=== PATIENT | male | born 1945 | race Caucasian/White ===

== ENCOUNTER 2023-08-10 14:44 | Emergency (ER) | payer OTHER, MEDICARE ==
[2023-08-10 15:14] VITALS: BP 142/101; PULSE 85; RESP 20; TEMP 98.2; BMI 30.4
[2023-08-10 15:56] LABS: HEMATOCRIT 46.4 % (35.4-49); HEMOGLOBIN 15.3 G/dL (11.7-16.9); MCH 31.5 pg (25.7-33.7); MEAN CELL VOLUME 95.5 fl (80-96); MEAN PLT VOLUME 9.4 fl (7.5-11.1); PLATELET COUNT 251.5 10^3/uL (134-434); RBC 4.86 10^6/uL (4.00-5.60); RDW 13.3 % (11.9-15.9); WHITE BLOOD COUNT 6.1 10^3/uL (4.0-10.8)
[2023-08-10 16:44] LABS: PLATELET ESTIMATE ADEQUATE
[2023-08-10 17:07] LABS: ALBUMIN 4.4 g/dl (3.4-5.0); BILIRUBIN,TOTAL 1.4 mg/dl (0.2-1); CALCIUM 10.1 mg/dl (8.5-10.1); CREATININE 0.8 mg/dl (0.6-1.3); POTASSIUM 4.2 mmol/L (3.5-5.1); TOT PROT 7.1 g/dl (6.4-8.2)
== END 2023-08-10 18:05 | disposition home or self-care (01) ==
LOC: FER 14:44
DX: R10.32 Left lower quadrant pain (principal); R14.0 Abdominal distension (gaseous); R11.0 Nausea; R42 Dizziness and giddiness
CPT/HCPCS: 36415; 74177-TC; 80053; 83605; 85027; 99285-25; Q9967

== ENCOUNTER 2024-07-05 07:34 | Day surgery (SDC) | payer OTHER, MEDICARE ==
[2024-07-03 16:04] VITALS: BMI 31.4
[2024-07-05 11:28] VITALS: TEMP 98
[2024-07-05 11:30] VITALS: BP 121/64; PULSE 82; RESP 19
== END 2024-07-05 09:15 | disposition home or self-care (01) ==
LOC: FASU-ENDO 07:34
PROVIDERS: ATTEND Internal Medicine Gastroenterology
PROC: 0DBK8ZX Excision of Ascending Colon, Via Natural or Artificial Opening Endoscopic, Diagnostic (ICD-10-PCS; principal; 2024-07-05 08:27)
DX: Z12.11 Encounter for screening for malignant neoplasm of colon (principal); D12.2 Benign neoplasm of ascending colon; K57.30 Diverticulosis of large intestine without perforation or abscess without bleeding
CPT/HCPCS: 88305-TC

== ENCOUNTER 2024-07-14 13:05 | Emergency (ER) | payer OTHER, MEDICARE ==
[2024-07-14 13:11] VITALS: RESP 16; BMI 30.7
[2024-07-14] MEDS ORDERED: ONDANSETRON 4 MG/2 ML VIAL ONE (13:36)
[2024-07-14] MEDS: ONDANSETRON 4 MG/2 ML VIAL IVPB ONE (14:00)
[2024-07-14] MEDS: SODIUM CHLORIDE 0.9% 500 ML INFUS.BAG IV ONE (14:00)
[2024-07-14 14:15] LABS: ABSOLUTE IMMATURE GRANULOCYTES 0.01 x10^3/uL (0.0-0.031); BASOPHILS # 0.04 x10^3/uL (0.01-0.08); EOSINOPHIL % 0.8 % (0.8-7.0); EOSINOPHILS # 0.05 x10^3/uL (0.04-0.54); HEMATOCRIT 46.2 % (40.1-51.0); HEMOGLOBIN 15.9 g/dL (13.7-17.5); MCHC 34.4 g/dl (32.3-36.5); MEAN CELL VOLUME 93.3 fl (79.0-92.2); MEAN PLT VOLUME 10.9 fl (9.4-12.4); MONOCYTE # 0.45 x10^3/uL (0.30-0.82); MONOCYTE % 7.5 % (5.3-12.2); PLATELET COUNT 199 x10^3/uL (163-337); RDW 12.2 % (12.2-16.6)
[2024-07-14 14:17] LABS: INR 1.02 (0.83-1.09); PROTHROMBIN TIME (PATIENT) 11.3 SEC (9.7-13.0)
[2024-07-14 14:20] LABS: ACTIVATED PTT 31.3 SECONDS (25.2-36.5)
[2024-07-14 14:23] LABS: ALBUMIN 4.4 g/dl (3.4-5.0); ALK PHOS 61 U/L (45-117); ANION GAP 8 mmol/L (4-13); CALCIUM 10.2 mg/dl (8.5-10.1); CHLORIDE 102 mmol/L (98-107); CO2 28 mmol/L (21-32); CREATININE 0.8 mg/dl (0.6-1.3); GLUCOSE,RANDOM 105 mg/dl (74-106); POTASSIUM 4.5 mmol/L (3.5-5.1); SGOT/AST 21 U/L (15-37); SGPT/ALT 38 U/L (7-52); SODIUM 138 mmol/L (136-145); TOT PROT 7.1 g/dl (6.4-8.2)
[2024-07-14 17:27] VITALS: BP 135/100; PULSE 86; TEMP 97.9
== END 2024-07-14 18:02 | disposition home or self-care (01) ==
LOC: FER 13:05 → SUPCPDRO 13:05 → FER 18:02
PROC: 3E033GC Introduction of Other Therapeutic Substance into Peripheral Vein, Percutaneous Approach (ICD-10-PCS; principal; 2024-07-14)
DX: K52.9 Noninfective gastroenteritis and colitis, unspecified (principal); R11.0 Nausea; R10.9 Unspecified abdominal pain
CPT/HCPCS: 0241U-QW; 36415; 74021-TC-FY; 74177-TC; 80053; 81003; 83605; 83690; 84484; 85025; 85610; 85730; 86140; 86850; 86900; 86901; 93005; 99285-25; Q9967